=== PATIENT | female | born 1960 | race Caucasian/White ===

== ENCOUNTER → 2016-12-17 | Outpatient (CLI) | payer OTHER ==
[~2016-12-17] MED LIST: ASPIRIN CHEWABL81 MG PO; DICYCLOMINE HCL20 MG PO; ESOMEPRAZOLE MA40 MG PO; LINZESS290 MCG PO; MIDODRINE HCL5 MG PO; PERCOCET 5-3251 EACH PO; RANEXA500 MG PO; SYMBICORT 80-41 INHA INH; VITAMIN B-12500 MC2 PO
[2016-12-17 11:04] LABS: HEMOGLOBIN 13.3 gm/dl (12.3-15.3); RED BLOOD COUNT 4.33 M/UL (4.00-5.10); WHITE BLOOD COUNT 5.5 K/UL (4.5-11.0)
[2016-12-17 11:30] LABS: BUN/CREATININE RATIO 17 (0-10)
== END ==
LOC: OPSV2 10:00
PROVIDERS: Orthopaedic Surgery
DX: Z01.812 Encounter for preprocedural laboratory examination (principal); Z01.810 Encounter for preprocedural cardiovascular examination; M65.4 Radial styloid tenosynovitis [de Quervain]
CPT/HCPCS: 36415; 80048; 85027; 93005

== ENCOUNTER → 2016-12-25 | Day surgery (SDC) | payer OTHER ==
[~2016-12-25] VITALS: Ht 167.6 cm; Wt 61.6 kg
== END | disposition home or self-care (01) ==
LOC: OR 10:02
PROVIDERS: Orthopaedic Surgery
PROC: 0LB60ZZ Excision of Left Lower Arm and Wrist Tendon, Open Approach (ICD-10-PCS; principal; 2016-12-25 11:15)
DX: M65.4 Radial styloid tenosynovitis [de Quervain] (principal); J44.9 Chronic obstructive pulmonary disease, unspecified; J45.909 Unspecified asthma, uncomplicated; I25.10 Atherosclerotic heart disease of native coronary artery without angina pectoris; M19.90 Unspecified osteoarthritis, unspecified site; Z79.82 Long term (current) use of aspirin; Z79.899 Other long term (current) drug therapy; Z91.040 Latex allergy status; Z88.8 Allergy status to other drugs, medicaments and biological substances
CPT/HCPCS: J0690; J2250; J3010; J7030; J7120

== ENCOUNTER 2020-11-26 20:21 | Emergency (ER) | payer OTHER ==
[~2020-11-26 20:21] MED LIST changes: +IMDUR ER TAB 6060 MG PO; +NITROSTAT0.4 MG SL; +VENTOLIN HFA 66.7 GM INH; +VITAMIN D350 MCG PO; +ZOCOR20 MG PO
[2020-11-27 00:08] LABS: HEMOGLOBIN 12.9 gm/dl (12.3-15.3); RED BLOOD COUNT 4.1 M/UL (4.00-5.10); WHITE BLOOD COUNT 8.2 K/UL (4.5-11.0)
[2020-11-27 00:44] LABS: BUN/CREATININE RATIO 15 (0-10)
== END 2020-11-27 02:25 | disposition home or self-care (01) ==
LOC: ER1 20:21
PROVIDERS: Physician Assistant
DX: S16.1XXA Strain of muscle, fascia and tendon at neck level, initial encounter (principal); R51.9 Headache, unspecified; E87.6 Hypokalemia; I11.9 Hypertensive heart disease without heart failure; Z90.710 Acquired absence of both cervix and uterus; Z90.49 Acquired absence of other specified parts of digestive tract; W19.XXXA Unspecified fall, initial encounter; Y92.009 Unspecified place in unspecified non-institutional (private) residence as the place of occurrence of the external cause
CPT/HCPCS: 70450; 71046; 72125; 80053; 82550; 82553; 83874; 84484; 85025; 93005; 99284

== ENCOUNTER 2021-01-19 14:52 | Emergency (ER) | payer OTHER ==
[2021-01-19 15:36] LABS: HEMOGLOBIN 13.8 gm/dl (12.3-15.3); RED BLOOD COUNT 4.32 M/UL (4.00-5.10); WHITE BLOOD COUNT 6.8 K/UL (4.5-11.0)
[2021-01-19 16:04] LABS: BUN/CREATININE RATIO 11 (0-10)
[2021-01-19] MEDS ORDERED: ISOSORBIDE MON120 MG PO (18:00)
== END 2021-01-19 20:48 | disposition home or self-care (01) ==
LOC: ER1 14:52
PROVIDERS: Family Medicine
DX: R07.9 Chest pain, unspecified (principal); E78.5 Hyperlipidemia, unspecified; Z87.891 Personal history of nicotine dependence; Z79.899 Other long term (current) drug therapy
CPT/HCPCS: 71045; 80053; 82550; 82553; 83874; 84484; 85025; 85610; 93005; 96374; 99285; J2405

== ENCOUNTER → 2021-01-22 | Outpatient (CLI) | payer OTHER ==
[~2021-01-22] MED LIST changes: +ELIQUIS 2.5 MG2.5 MG PO; +ISOSORBIDE MON120 MG PO
== END ==
LOC: LAB 10:07
DX: R06.02 Shortness of breath (principal); R07.9 Chest pain, unspecified
CPT/HCPCS: 36415; 85379

== ENCOUNTER 2021-03-13 12:54 | Inpatient (IN) | payer OTHER ==
[~2021-03-13] VITALS: Ht 167.6 cm; Wt 66.2 kg
[~2021-03-13 12:54] MED LIST changes: -ELIQUIS 2.5 MG2.5 MG PO
[2021-03-13 14:58] LABS: HEMOGLOBIN 13.5 gm/dl (12.3-15.3); RED BLOOD COUNT 4.26 M/UL (4.00-5.10); WHITE BLOOD COUNT 5.3 K/UL (4.5-11.0)
[2021-03-13 15:27] LABS: BUN/CREATININE RATIO 19 (0-10)
[2021-03-14 03:33] LABS: HEMOGLOBIN 12.3 gm/dl (12.3-15.3); RED BLOOD COUNT 3.85 M/UL (4.00-5.10)
[2021-03-14 03:35] LABS: WHITE BLOOD COUNT 3.1 K/UL (4.5-11.0)
[2021-03-14 03:53] LABS: BUN/CREATININE RATIO 26 (0-10)
[2021-03-14] MEDS ORDERED: RANEXA500 MG PO (11:02)
[2021-03-15 07:52] LABS: HEMOGLOBIN 12.8 gm/dl (12.3-15.3); RED BLOOD COUNT 4.13 M/UL (4.00-5.10)
[2021-03-15 08:17] LABS: BUN/CREATININE RATIO 25 (0-10)
[2021-03-15] MEDS ORDERED: ELIQUIS 2.5 MG2.5 MG PO (12:30)
[2021-03-16 08:15] LABS: HEMOGLOBIN 11.6 gm/dl (12.3-15.3); RED BLOOD COUNT 3.78 M/UL (4.00-5.10); WHITE BLOOD COUNT 7.6 K/UL (4.5-11.0)
[2021-03-16 08:47] LABS: BUN/CREATININE RATIO 24 (0-10)
[2021-03-17 07:22] LABS: BUN/CREATININE RATIO 22 (0-10)
--- NOTE | 2021-03-17 14:48 | NUR ---
DISCUSSED PT WITH DR MICHAEL DURING ROUTINE ROUNDING. PT ON 90% FIO2 VIA AIRVO. PT HAVING MORE FREQUENT EPISODES OF O2 SATS DROPPING TO LOW 80'S AND BECOMING MORE DIFFICULT TO BRING BACK UP TO 90% OR HIGHER. CONCERN FOR BIPAP NEED DISCUSSED. WILL MOVE PT TO PCU WHEN BED AVAILABLE IN PROACTIVE MOVE IF NEED FOR BIPAP
[2021-03-18 03:32] LABS: HEMOGLOBIN 12.4 gm/dl (12.3-15.3); RED BLOOD COUNT 3.96 M/UL (4.00-5.10)
[2021-03-18 03:43] LABS: WHITE BLOOD COUNT 10.6 K/UL (4.5-11.0)
[2021-03-18 03:54] LABS: BUN/CREATININE RATIO 20 (0-10)
[2021-03-19 03:49] LABS: HEMOGLOBIN 12.2 gm/dl (12.3-15.3); RED BLOOD COUNT 3.89 M/UL (4.00-5.10); WHITE BLOOD COUNT 9.1 K/UL (4.5-11.0)
[2021-03-19 04:02] LABS: BUN/CREATININE RATIO 21 (0-10)
[2021-03-20 03:27] LABS: HEMOGLOBIN 12.4 gm/dl (12.3-15.3); RED BLOOD COUNT 3.95 M/UL (4.00-5.10)
[2021-03-20 04:01] LABS: BUN/CREATININE RATIO 28 (0-10)
[2021-03-21 02:56] LABS: HEMOGLOBIN 11.4 gm/dl (12.3-15.3); RED BLOOD COUNT 3.67 M/UL (4.00-5.10); WHITE BLOOD COUNT 10.6 K/UL (4.5-11.0)
[2021-03-21 03:18] LABS: BUN/CREATININE RATIO 22 (0-10)
[2021-03-22 04:13] LABS: HEMOGLOBIN 11.1 gm/dl (12.3-15.3); RED BLOOD COUNT 3.66 M/UL (4.00-5.10); WHITE BLOOD COUNT 10.8 K/UL (4.5-11.0)
[2021-03-22 04:31] LABS: BUN/CREATININE RATIO 21 (0-10)
[2021-03-23 04:04] LABS: HEMOGLOBIN 11.8 gm/dl (12.3-15.3); RED BLOOD COUNT 3.95 M/UL (4.00-5.10)
[2021-03-23 04:10] LABS: WHITE BLOOD COUNT 15.9 K/UL (4.5-11.0)
[2021-03-23 04:29] LABS: BUN/CREATININE RATIO 26 (0-10)
[2021-03-24 07:18] LABS: HEMOGLOBIN 11.4 gm/dl (12.3-15.3); RED BLOOD COUNT 3.84 M/UL (4.00-5.10); WHITE BLOOD COUNT 17.1 K/UL (4.5-11.0)
[2021-03-24 07:33] LABS: BUN/CREATININE RATIO 25 (0-10)
--- NOTE | 2021-03-24 09:58 | NUR ---
patient had an episode of pulse ox on high 50's low 60's. during that time patient was given a bed bath by oneil'jaguar and patient using his airvo. no respiratory distress noted. patient was put on bipap and currently resting comfortably.
--- NOTE | 2021-03-24 11:55 | NUR ---
reported to dr. garcia earlier of patient episode of low o2 saturation with activity and rt changed patient from airvo to bipap. he acknowledged
--- NOTE | 2021-03-24 16:27 | NUR ---
received call from telemetry patient pulse ox on 80's and will change airvo to bipap. rt in the room with the patient at this time
--- NOTE | 2021-03-24 16:28 | NUR ---
patient refused to use bipap and wanted to stay on airvo. pulse ox at this time 93%
[2021-03-25 08:05] LABS: RED BLOOD COUNT 3.7 M/UL (4.00-5.10); WHITE BLOOD COUNT 16.1 K/UL (4.5-11.0)
[2021-03-25 08:44] LABS: BUN/CREATININE RATIO 28 (0-10)
--- NOTE | 2021-03-27 09:25 | NUR ---
has been attempting to titrate patient oxygen-airvo with assistance from RT with no success at this time. airvo back to 50L and 88%.
--- NOTE | 2021-03-27 09:33 | NUR ---
reported to anu joy of patient episode decrease of pulse ox to 80's for few seconds and back to low 90's. no s/sx of respiratory distress noted. anu to see patient
[2021-03-28 07:39] LABS: HEMOGLOBIN 10.9 gm/dl (12.3-15.3); RED BLOOD COUNT 3.62 M/UL (4.00-5.10); WHITE BLOOD COUNT 13.8 K/UL (4.5-11.0)
[2021-03-28 07:47] LABS: BUN/CREATININE RATIO 29 (0-10)
[2021-03-29 07:04] LABS: HEMOGLOBIN 11.8 gm/dl (12.3-15.3); RED BLOOD COUNT 3.93 M/UL (4.00-5.10); WHITE BLOOD COUNT 13.1 K/UL (4.5-11.0)
[2021-03-29 07:33] LABS: BUN/CREATININE RATIO 24 (0-10)
--- NOTE | 2021-03-29 10:55 | NUR ---
PT SATS IN LOW 70'S WITHOUT O2, SHE IS CURRENTLY ON 50L OF AIRVO
[2021-03-30 07:02] LABS: HEMOGLOBIN 11.3 gm/dl (12.3-15.3); RED BLOOD COUNT 3.72 M/UL (4.00-5.10); WHITE BLOOD COUNT 12.7 K/UL (4.5-11.0)
[2021-03-30 07:48] LABS: BUN/CREATININE RATIO 34 (0-10)
--- NOTE | 2021-03-30 10:15 | NUR ---
Notified Dr. Pepper about patient spiking temp of 102.6 and he gave me a PRN Q4H dose of 650mg of Tylenol.
[2021-03-31 06:23] LABS: HEMOGLOBIN 11.1 gm/dl (12.3-15.3); RED BLOOD COUNT 3.71 M/UL (4.00-5.10); WHITE BLOOD COUNT 13.3 K/UL (4.5-11.0)
[2021-03-31 06:48] LABS: BUN/CREATININE RATIO 29 (0-10)
[2021-04-01 06:24] LABS: HEMOGLOBIN 11.1 gm/dl (12.3-15.3); RED BLOOD COUNT 3.66 M/UL (4.00-5.10); WHITE BLOOD COUNT 12.5 K/UL (4.5-11.0)
[2021-04-01 06:44] LABS: BUN/CREATININE RATIO 27 (0-10)
[2021-04-02 08:08] LABS: HEMOGLOBIN 11.2 gm/dl (12.3-15.3); RED BLOOD COUNT 3.7 M/UL (4.00-5.10); WHITE BLOOD COUNT 12.8 K/UL (4.5-11.0)
[2021-04-02 08:25] LABS: BUN/CREATININE RATIO 27 (0-10)
[2021-04-03 08:24] LABS: HEMOGLOBIN 11.1 gm/dl (12.3-15.3); RED BLOOD COUNT 3.58 M/UL (4.00-5.10); WHITE BLOOD COUNT 12.2 K/UL (4.5-11.0)
[2021-04-03 09:06] LABS: BUN/CREATININE RATIO 29 (0-10)
[2021-04-04 06:40] LABS: HEMOGLOBIN 11.8 gm/dl (12.3-15.3); RED BLOOD COUNT 3.76 M/UL (4.00-5.10); WHITE BLOOD COUNT 9.8 K/UL (4.5-11.0)
[2021-04-04 07:01] LABS: BUN/CREATININE RATIO 25 (0-10)
[2021-04-05 08:37] LABS: BUN/CREATININE RATIO 21 (0-10)
[2021-04-06 07:09] LABS: HEMOGLOBIN 11.4 gm/dl (12.3-15.3); RED BLOOD COUNT 3.63 M/UL (4.00-5.10); WHITE BLOOD COUNT 10.2 K/UL (4.5-11.0)
[2021-04-06 07:30] LABS: BUN/CREATININE RATIO 25 (0-10)
--- NOTE | 2021-04-06 11:44 | NUR ---
receives call from telemetry stating patient pulse ox low - patient ambulated from bed to chair. noted on reading of pulse and o2 sat low ranges from 78-84 with current airvo 50L to 78%. RT adjusted airvo and currently patient 95% and pulse to 96. will cont to monitor
--- NOTE | 2021-04-06 18:05 | NUR ---
received call from telemetry patient pulse 140 and pulse ox 79. evaluate patient no s/sx of respiratory distress, back to bed from using bsc. oven drier tender in the room assisting patient. pulse 108, pulse ox 91
--- NOTE | 2021-04-06 18:08 | NUR ---
md aware of patient condition.
[2021-04-07 06:45] LABS: HEMOGLOBIN 11.3 gm/dl (12.3-15.3); RED BLOOD COUNT 3.57 M/UL (4.00-5.10); WHITE BLOOD COUNT 11.8 K/UL (4.5-11.0)
[2021-04-07 07:16] LABS: BUN/CREATININE RATIO 29 (0-10)
[2021-04-08 07:58] LABS: HEMOGLOBIN 11.4 gm/dl (12.3-15.3); RED BLOOD COUNT 3.61 M/UL (4.00-5.10); WHITE BLOOD COUNT 10.6 K/UL (4.5-11.0)
[2021-04-08 08:33] LABS: BUN/CREATININE RATIO 28 (0-10)
--- NOTE | 2021-04-09 14:30 | NUR ---
notified picc line nurse r/t picc line tubing.
--- NOTE | 2021-04-09 18:47 | NUR ---
reported to dr. short earlier of patient vomitting episode and medicine for her bowel to move and dr. short acknowledged
[2021-04-11 04:19] LABS: BUN/CREATININE RATIO 49 (0-10)
[2021-04-12 05:37] LABS: BUN/CREATININE RATIO 26 (0-10)
--- NOTE | 2021-04-12 23:25 | NUR ---
NURSE SPOKE WITH PATIENT REGARDING CODE STATUS AFTER PATIENT DESATTED AND HAD HARD TIME RETURNING TO NORMAL, PATIENT STATED LATER THAT SHE STILL WANTED TO BE A DNR/ DNI. PATIENT CODE STATUS WAS UPDATED BOTH TIMES.
[2021-04-13 07:22] LABS: BUN/CREATININE RATIO 20 (0-10)
[2021-04-14 06:38] LABS: BUN/CREATININE RATIO 26 (0-10)
--- NOTE | 2021-04-14 13:45 | NUR ---
dr. rodriguez on the floor- discuss patient condition. patient will remain on the covid isolation per dr. rodriguez. discuss isolation with [facility] infection control- and informed of the guidelines. as stated earlier patient will be on covid isolation.
[2021-04-15 03:24] LABS: HEMOGLOBIN 9.2 gm/dl (12.3-15.3); RED BLOOD COUNT 2.86 M/UL (4.00-5.10); WHITE BLOOD COUNT 22.4 K/UL (4.5-11.0)
[2021-04-15 03:32] LABS: BUN/CREATININE RATIO 33 (0-10)
--- NOTE | 2021-04-15 15:22 | NUR ---
spoken to dr. garcia and reported patients abdomen distended, patient vomiting, and complaints of pain. received order.
[2021-04-16 01:04] LABS: HEMOGLOBIN 8.7 gm/dl (12.3-15.3); RED BLOOD COUNT 2.64 M/UL (4.00-5.10)
[2021-04-16 01:05] LABS: WHITE BLOOD COUNT 15.7 K/UL (4.5-11.0)
--- NOTE | 2021-04-16 01:41 | NUR ---
AT 0000 VENT PRESSURE ALARM GOING OFF, AFTER ASSESSMENT ET TUBE NOTED TO BE KINKED. RT NOTIFIED AND WAS UNABLE TO CORRECT IT. AT 0015 DR CHOPRA HERE FROM ER TO USE BOUGIE TO CHANGE ET TUBE, PROCEDURE WENT WELL A CHEST XRAY WAS OBTAINED AND DR CHOPRA STATED THAT THE TUBE WAS IN THE CORRECT PLACE WITH BILAT BREATH SOUNDS AND CO2 WITH GOOD COLOR CHANGE. PT'S O2 SAT DECREASING INTO THE 60'S. AT 0042 DR CHOPRA DECIDED TO RE-INTUBATE PT. RT AT BEDSIDE AND DR JOHNSON AWARE. 7.5 TUBE PLACED WITH GOOD COLOR CHANGE BREATH SOUNDS BILAT, OG PLACED BY DR CHOPRA USING A GLYDOSCOPE. CHEST X RAY CONFIRMED PLACEMENT OF OG AND ET TUBE TO BE IN CORRECT PLACE. BP ALSO DECREASING AT THIS TIME, PT ALREADY ON PHENYLEPHRINE. WAS TITRATING BUT WAS NOT IMPROVING BP, DR JOHNSON REQUESTED PT BE ON LEVOPHED AND BP IMPROVING AT THIS TIME.
--- NOTE | 2021-04-17 03:25 | NUR ---
0241, PT ASYSTOLE ON MONITOR, NO RESPIRATIONS,NO HEART TONES,NO BREATH SOUNDS, NO SPONTANIOUS BREATHS,NO CORNEAL REFLEX NOTED, PT PROUNOUNCED AT 0241 AM BY ZAY BRICE RN, RACHEL MELGAR RN.
== END 2021-04-17 02:41 | disposition expired | DRG 981 ==
LOC: ER1 12:54 → PROG CARE 17:19 → M/S 17:19 → CCU 17:19 → CDU 17:19 → MED SURG 4 17:19 → PROG CARE 03-17 20:35 → M/S 03-23 11:18 → CCU 04-15 22:01
PROVIDERS: Internal Medicine; Physician Assistant; ADMIT Internal Medicine
PROC: 8E0ZXY6 Isolation (ICD-10-PCS; principal; 2021-03-13)
PROC: XW033E5 Introduction of Remdesivir Anti-infective into Peripheral Vein, Percutaneous Approach, New Technology Group 5 (ICD-10-PCS; 2021-03-13)
PROC: XW13325 Transfusion of Convalescent Plasma (Nonautologous) into Peripheral Vein, Percutaneous Approach, New Technology Group 5 (ICD-10-PCS; 2021-03-13)
PROC: 5A09557 Assistance with Respiratory Ventilation, Greater than 96 Consecutive Hours, Continuous Positive Airway Pressure (ICD-10-PCS; 2021-03-13)
PROC: 3E0333Z Introduction of Anti-inflammatory into Peripheral Vein, Percutaneous Approach (ICD-10-PCS; 2021-03-16)
PROC: 0D9H0ZZ Drainage of Cecum, Open Approach (ICD-10-PCS; 2021-04-15)
PROC: 5A1945Z Respiratory Ventilation, 24-96 Consecutive Hours (ICD-10-PCS; 2021-04-16)
PROC: 0BH18EZ Insertion of Endotracheal Airway into Trachea, Via Natural or Artificial Opening Endoscopic (ICD-10-PCS; 2021-04-16)
DX: U07.1 COVID-19 (principal); J12.82 Pneumonia due to coronavirus disease 2019; J96.01 Acute respiratory failure with hypoxia; J15.9 Unspecified bacterial pneumonia; J44.0 Chronic obstructive pulmonary disease with (acute) lower respiratory infection; N17.9 Acute kidney failure, unspecified; K56.7 Ileus, unspecified; E87.1 Hypo-osmolality and hyponatremia; K21.9 Gastro-esophageal reflux disease without esophagitis; K58.9 Irritable bowel syndrome, unspecified; E53.8 Deficiency of other specified B group vitamins; R94.5 Abnormal results of liver function studies; Z66 Do not resuscitate; Z51.5 Encounter for palliative care; R74.01 Elevation of levels of liver transaminase levels; I25.10 Atherosclerotic heart disease of native coronary artery without angina pectoris; E86.0 Dehydration; E78.5 Hyperlipidemia, unspecified; K59.00 Constipation, unspecified; M51.36 Other intervertebral disc degeneration, lumbar region; Z98.51 Tubal ligation status; Z98.890 Other specified postprocedural states; Z90.49 Acquired absence of other specified parts of digestive tract; Z90.89 Acquired absence of other organs; Z88.8 Allergy status to other drugs, medicaments and biological substances; Z88.5 Allergy status to narcotic agent; Z87.891 Personal history of nicotine dependence; Z79.82 Long term (current) use of aspirin; Z79.899 Other long term (current) drug therapy; Z82.49 Family history of ischemic heart disease and other diseases of the circulatory system
CPT/HCPCS: 31500; 36415; 36600; 71045; 71046; 71275; 74018; 80048; 80053; 82550; 82553; 82803; 83605; 83735; 83874; 83880; 84100; 84132; 84484; 85025; 85027; 85379; 86140; 86850; 86900; 86901; 87040; 93005; 94002; 94003; 94640; 94660; 94760; 97110-GP-CQ; 97116-GP-CQ; 97161; 97166; 97530; 97530-GP-CQ; 99285; J0461; J0696; J1100; J1650; J1940; J2185; J2270; J2370; J2405; J2704; J3010; J7030; J7040; J7070; J7120; Q9967; U0002